=== PATIENT | male | born 1950 | race Caucasian/White ===

== ENCOUNTER 2025-02-17 13:53 | Outpatient (CLI) | payer MEDICARE, SELFPAY ==
--- NOTE | 2025-02-17 13:56 | XR_ITS ---
FINAL REPORT CLINICAL HISTORY: right shoulder pain feels like an aching pain COMPARISON: None FINDINGS: RIGHT SHOULDER Three views demonstrate no acute fracture or dislocation. There is mild to moderate hypertrophic changes of the acromioclavicular joint. The glenohumeral joint is intact. Sclerotic focus in the proximal humeral metaphysis measures 1.8 cm and is consistent with enostosis. IMPRESSION: Degenerative/chronic changes without acute process. Reviewed, Interpreted and Dictated by Mateus Pinto MD Transcribed by Senait Johnston Authenticated and [facility]
--- NOTE | 2025-02-17 13:56 | XR_ITS ---
FINAL REPORT CLINICAL HISTORY: evaluate right foot pain prior fracture as a young kid , pt stated pain in the same area that it was fractured , on the lateral side COMPARISON: None FINDINGS: RIGHT FOOT 3 views of the right foot were obtained. There is no acute fracture or dislocation. Moderate vascular calcifications are noted. There is moderate joint space narrowing at the first interphalangeal joint. An os trigonum measures 10 mm. IMPRESSION: Degenerative/chronic change without acute bony abnormality. Reviewed, Interpreted and Dictated by Mateus Pinto MD Transcribed by Senait Johnston Authenticated and [facility]
--- OUTSIDE RECORDS SUMMARY | 2025-02-17 13:56 | XMS_ITS | Clinical Summary ---
Author Organization [facility] Address [address] [place] [address] Care Team Providers Care Television Newscast Director Name Role Phone Guillermo Escobar Primary Care Provider [phone] Allergies No known active allergies Medications omeprazole (priLOSEC) 20 MG capsule Take 20 mg by mouth Daily. Active escitalopram (LEXAPRO) 20 MG tablet Take 20 mg by mouth Daily. Active topiramate (TOPAMAX) 25 MG capsule (sprinkle) Take 25 mg by mouth Daily. Active lisinopril (PRINIVIL,ZESTR IL) 20 MG tablet Take 20 mg by mouth Daily. Active nitroglycerin (NITROSTAT) 0.[address] 1 tablet under the tongue Every 5 (Five) Minutes As Needed for Chest Pain. Take no more than 3 doses in 15 minutes. 100 tablet 11/02/2021 Active valACYclovir (VALTREX) 500 MG tablet Take 500 mg by mouth Daily. 10/19/2021 Active metoprolol tartrate (LOPRESSOR) 25 MG tablet Take 1 tablet by mouth 2 (Two) Times a Day. 60 tablet 11 11/08/2021 Active rosuvastatin (CRESTOR) 20 MG tabletIndicatio ns:Hyperlipidem ia LDL goal <70 Take 1 tablet by mouth Daily. 90 tablet 11/09/2021 Active aspirin 81 MG EC tabletIndicatio ns:Coronary artery disease involving [place] coronary artery of [place] heart with angina pectoris Take 1 tablet by mouth Daily. 90 tablet 3 11/10/2021 Active empagliflozin (Jardiance) 10 MG tablet tabletIndicatio ns:Type 2 diabetes mellitus without complication, without long-term current use of insulin Take 1 tablet by mouth Daily. 90 tablet 11/09/2021 Active Active Problems Problem Noted Date Diagnosed Date Type 2 diabetes mellitus, wi thout long-term current use of insulin 11/09/2021 Ventricular tachycardia 11/08/2021 Overview (11/09/2021): Exercise nuclear stress (11/08/2021): Exercised for 3:2 minutes before developing symptomatic nonsustained ventricular tachycardia. Normal perfusion images. LVEF >70% Cardiac catheterization (11/09/2021): Mild CAD.. Normal LV filling pressure Echo (11/09/2021): LVEF 65%. No significant valve abnormality Coronary artery disease invo lving [place] coronary artery of [place] heart with angina pectoris 11/08/2021 Overview (11/09/2021): Exercise nuclear stress (11/08/2021): Exercised for 3:2 minutes before developing symptomatic ventricular tachycardia. Normal perfusion images. LVEF >70% coronary artery calcification noted on CT attenuation correction images. Cardiac catheterization (11/09/2021): Mild CAD and left dominant system. Normal LV filling pressure Hyperlipidemia LDL goal <70 11/08/2021 Overview (11/08/2021): High intensity statin therapy indicated given the presence of CAD Family History Medical History Relation Name Comments No Known Problems Brother Cancer Father bile duct No Known Problems Maternal Grandfather No Known Problems Maternal Grandmother No Known Problems Mother Stroke Paternal Grandfather No Known Problems Paternal Grandmother Heart disease Paternal Uncle No Known Problems Sister Relation Name Status Comments Brother Alive Father Maternal Grandfather Maternal Grandmother Mother Paternal Grandfather Paternal Grandmother Paternal Uncle Alive Sister Alive Social History Tobacco Use Types Packs/Day Years Used Date Smoking Tobacco: Former Smokeless Tobacco: Former Alcohol Use Standard Drinks/Week Comments Not Currently 0 (1 standard drink = 0.6 oz pur e alcohol) none for 2 years AUDIT-C Answer Date Recorded Q1: How often do you have a drink containing alcohol? Never 11/08/2021 Q2: How many drinks containi ng alcohol do you have on a typical day when you are drinking? Patient does not drink Q3: How often do you have si x or more drinks on one occasion? Never 11/08/2021 Abuse Screen Answer Date Recorded Unsafe at Home or Work/School Not on file Feels Threatened by Someone? Not on file 01/2023 Does Anyone Keep You from Co ntacting Others or Doint Things Outside the Home? Not on file 02/25/2023 Physical Sign of Abuse Present Not on file 1 Housing Stability Answer Date Recorded Current Living Arrangements Not on file 01/2023 Potentially Unsafe Housing Conditions Not on ann e 02/25/2023 Family and Community Support Answer Rajat e Recorded Help with Day-to-Day Activities Not on file 02/25/2023 Lonely or Isolated Not on file 02/25/2023 Employment Answer Date Recorded Do you want help finding or keeping work or a falguni b? Not on file 02/25/2023 Disabilities Answer Date Recorded Concentrating, Remembering, or Making Decisions Difficulty Not on file 02/25/2023 Doing Errands Independently Difficulty Not on fi le 02/25/2023 Education Answer Date Recorded Help with school or training? Not on file Preferred Language Not on file 02/25/2023 Sex and Gender Information Value Date Recorded Sex Assigned at Not on file Legal Sex Male 10:42 AM EDT Gender Identity Not on file Sexual Orientation Not on file Last Filed Vital Signs Vital Sign Reading Time Taken Comments Blood Pressure 99/59 11/09/2021 11:29 AM EDT Pulse 55 11/09/2021 2:00 PM EDT Temperature 36.7 C (98 F) 11/09/2021 9:20 AM EDT Respiratory Rate 16 11/09/2021 11:29 AM EDT Oxygen Saturation 92% 11/09/2021 2:00 PM EDT Inhaled Oxygen Concentration - - Weight 98 kg (216 lb) 11/09/2021 1:11 PM EDT Height 182.9 cm (6') 11/09/2021 1:11 PM EDT Body Mass Index 29.29 11/09/2021 1:11 PM EDT Plan of Treatment Health Maintenance Due Date Last Done Comments COLOGUARD 1995 COLON CANCER SCREENING 5 RYANN Lira SIGMOIDOSCOPY 1995 COLONOSCOPY 1995 COL[address]AL CANCER SCREENING 1995 CT COLONOGRAPHY 1995 FECAL OCCULT BLOOD TEST 1995 FIT Testing (1 year) 1995 ZOSTER VACCINE (1 of 2) 2000 AAA SCREEN ONCE 2015 ANNUAL PHYSICAL 11/06/2021 HEPATITIS C SCREENING 11/06/2021 LIPID PANEL 11/09/2022 11/09/2021 INFLUENZA VACCINE 12/18/2024 COVID-19 Vaccine (2 - season) 2025 Pneumococcal Vaccine 50+ (3 of 3 - PCV20 or PCV21) 09/21/2025 09/21/2020, 05/15/2011 TDAP/TD VACCINES (2 - Td or Tdap) 06/04/2026 017 HEMOGLOBIN A1C Discontinued 11/08/2021 Procedures Procedure Name Priority Date/Time Associated Diagnosis Comments LIPID PANEL Routine 11/09/2021 4:03 AM EDT HEMOGLOBIN A1C Routine 11/08/2021 7:07 PM EDT from Last 3 Months or Most Recently Relevant to Health Maintenance Results * (ABNORMAL) Lipid Panel (11/09/2021 4:03 AM EDT) Total Cholesterol 187 0 - 200 mg/dL 11/09/2021 5:57 AM EDT [facility] Triglycerides 186(H) 0 - 150 mg/dL 11/09/2021 5:57 AM EDT [facility] HDL Cholesterol 33(L) 40 - 60 mg/dL 11/09/2021 5:57 AM EDT [facility] LDL Cholesterol 121(H) 0 - 100 mg/dL 11/09/2021 5:57 AM EDT [facility] VLDL Cholesterol 33 5 - 40 mg/dL 11/09/2021 5:57 AM EDT [facility] LDL/HDL Ratio 3.54 11/09/2021 5:57 AM EDT [facility] Blood Venipuncture / Unknown 11/09/2021 4:03 AM EDT 11/09/2021 5:28 AM EDT Narrative [facility] - 11/09/2021 5:57 AM EDT Cholesterol Reference Ranges (U.S. Department of Health and Human Services ATP III Classifications) Desirable <200 mg/dL Borderline High 200-239 mg/dL High Risk >240 mg/dL Triglyceride Reference Ranges (U.S. Department of Health and Human Services ATP III Classifications) Normal <150 mg/dL Borderline High 150-199 mg/dL High 200-499 mg/dL Very High >500 mg/dL HDL Reference Ranges (U.S. Department of Health and Human Services ATP III Classifications) Low <40 mg/dl (major risk factor for CHD) High >60 mg/dl ('negative' risk factor for CHD) LDL Reference Ranges (U.S. Department of Health and Human Services ATP III Classifications) Optimal <100 mg/dL Near Optimal 100-129 mg/dL Borderline High 130-159 mg/dL High 160-189 mg/dL Very High >189 mg/dL Pierce Arriaga MD LAB BLOOD ORDERABLES Fi nal Result [facility]
[address] [place] [address], * (ABNORMAL) Hemoglobin A1c (11/08/2021 7:07 PM EDT) [facility] Signature Hemoglobin A1C 7.10(H) 4.80 - 5.60 % 11/08/2021 8:08 PM EDT [facility] Blood Venipuncture / Unknown 11/08/2021 7:07 PM EDT 11/08/2021 7:38 PM EDT Narrative [facility] - 11/08/2021 8:08 PM EDT Hemoglobin A1C Ranges: Increased Risk for Diabetes 5.7% to 6.4% Diabetes >= 6.5% Diabetic Goal < 7.0% Pierce Arriaga MD LAB BLOOD ORDERABLES Fi nal Result [facility]
[address] [place] [address], from Last 3 Months or Most Recently Relevant to Health Maintenance Insurance MEDICARE A & [facility] C[facility] OPTIONS Advance Directives * CPR (Attempt to Resuscitate) (Latest Code Status on File) Date Activated Date Inactivated Comments 11/09/2021 12:14 PM 11/09/2021 6:36 PM Question Answer Comments Code Status (Patient has no pulse and is not breathing): CPR (Attempt to Resuscitate) Medical Interventions (Patie nt has pulse or is breathing): Full Support * CPR (Attempt to Resuscitate) Date Activated Date Inactivated Comments 11/08/2021 7:42 PM 11/09/2021 12:14 PM Question Answer Comments Code Status (Patient has no pulse and is not breathing): CPR (Attempt to Resuscitate) Medical Interventions (Patie nt has pulse or is breathing): Full Support Level Of Support Discussed With: Patient Care Teams Television Newscast Director Relationship Specialty Start Date End Date Guillermo Escobar DO [address] [place] [address] PCP - General Family Medicine 10/15/18
== END 2025-02-17 23:59 | disposition home or self-care (01) ==
LOC: RAD 13:54
PROVIDERS: PCP Family Medicine; Visit Provider Family Medicine
DX: M19.011 Primary osteoarthritis, right shoulder (principal); M19.071 Primary osteoarthritis, right ankle and foot
CPT/HCPCS: 73030; 73630

== ENCOUNTER 2025-04-20 15:23 | Outpatient (CLI) | payer MEDICARE, SELFPAY ==
--- NOTE | 2025-04-20 15:26 | XR_ITS ---
FINAL REPORT CLINICAL HISTORY: right 5th met fracture evaluation COMPARISON: 02/17/2025 FINDINGS: RIGHT FOOT 3 views of the right foot were obtained. There is no acute fracture or dislocation. Specifically, there is no acute fracture of the fifth metatarsal. There is stable degenerative joint disease. Visualized joint spaces are normally aligned. Soft tissues are unremarkable. IMPRESSION: No acute bony abnormality. Reviewed, Interpreted and Dictated by Bernice Montalvo MD Transcribed by Thelma Shell Authenticated and [facility]
--- OUTSIDE RECORDS SUMMARY | 2025-04-20 15:27 | XMS_ITS | Encounter Summary ---
Author Organization [facility] ([place], [place], [place], [place], [place]) Address [address] [place] [address] Care Team Providers Care Solderer Barrel Ribs Name Role Phone Guillermo Escobar DO Primary Care Provider [phone] Jorge Bray MD Primary Care Provider [phone] Citlali Bond MD, Tino Kwok Unavailable + [phone] Harrison Santana Unavailable [phone] Encounter Details Date Type Department Care Team (Late st Contact Info) Description 09/19/2022 Telephone [facility] Primary Care - [place] [address] [place] [address] Guillermo Escobar, [address] [facility] [address] [place] [id number] Social History Tobacco Use Types Packs/Day Years Used Date Smoking Tobacco: Former Smokeless Tobacco: Never Overall Financial Resource Strain (CARDIA) Answe r Date Recorded How hard is it for you to pa y for the very basics like food, housing, medical care, and heating? Not hard at all 07/17/2022 Exercise Vital Sign Answer Date Recorde d On average, how many days pe r week do you engage in moderate to strenuous exercise (like a brisk walk)? 0 days 07/17/2022 On average, how many minutes do you engage in exercise at this level? 0 min 07/17/2022 Hunger Vital Sign Answer Date Recorded Within the past 12 months, y ou worried that your food would run out before you got the money to buy more. Never true 07/17/19 23 Within the past 12 months, t he food you bought just didn't last and you didn't have money to get more. Never true 07/17/2022 PRAPARE - Transportation Answer Date Re corded In the past 12 months, has l ack of transportation kept you from medical appointments or from getting medications? No 06/21 In the past 12 months, has l ack of transportation kept you from meetings, work, or from getting things needed for daily living? No 07/17/2022 Sex and Gender Information Value Date Recorded Sex Assigned at Not on file Legal Sex Male 5:45 PM CDT Gender Identity Not on file Sexual Orientation Not on file documented as of this encounter Miscellaneous Notes * Telephone Encounter - Guillermo Escobar DO - 09/20/2022 7:58 AM EDT The area in question is in the right axilla not in the breast. There is no dedicated axillary ultrasound available that I could find to order. Any suggestions? Thank you documented in this encounter Plan of Treatment Not on file documented as of this encounter Visit Diagnoses Not on filedocumented in this encounter Care Teams Solderer Barrel Ribs Relationship Specialty Start Date End Date Guillermo Escobar DO PCP - General Family Medicine 03/26/22 06/03/23 Jorge Bray MD [address] [facility] [address] [place], [place] [id number] PCP - General Family Medicine 06/04/23 01/31/25 Tino Godwin Jr., MD [address] [facility] [address] [place] [address] Urology 10/27/24 Harrison Santana [address] [place] [address] 10/27/24 documented as of this encounter
--- OUTSIDE RECORDS SUMMARY | 2025-04-20 15:27 | XMS_ITS | Encounter Summary ---
Author Organization [employer] ([place], [place], [place], [place], [place]) Address [address] [place] [address] Care Team Providers Care Interactive Media Project Manager Name Role Phone Guillermo Escobar DO Primary Care Provider [phone] Jorge Bray MD Primary Care Provider [phone] Citlali Bond MD, Tino Kwok Unavailable + [phone] Harrison Santana Unavailable [phone] Encounter Details Date Type Department Care Team (Late st Contact Info) Description 09/27/2022 Telephone [facility] Primary Care - [place] [address] [place] [address] Guillermo Escobar, [address] [facility] [address] [place] [id number] Social History Tobacco Use Types Packs/Day Years [...] Telephone Encounter - Guillermo Escobar DO - 09/27/2022 12:56 PM EDT Done. Thanks again for your persistence in this matter. documented in this encounter Plan of Treatment Not on file documented as of this encounter Visit Diagnoses Not on filedocumented in this encounter Care Teams Interactive Media Project Manager Relationship Specialty Start Date End Date Guillermo Escobar DO PCP - General Family Medicine 03/26/22 06/03/23 Jorge Bray MD [address] [facility] [address] [place], [place] [id number] PCP - General Family Medicine 06/04/23 01/31/25 [place] [address] [place] [address] [address] [place] [address] Urology 10/27/24 Harrison Santana [address] [facility] [address] [place] [address] 10/27/24 documented as of this encounter
--- OUTSIDE RECORDS SUMMARY | 2025-04-20 15:27 | XMS_ITS | Clinical Summary ---
Author Organization [employer] ([place], [place], [place], [place], [place]) Address [address] [place] [address] Care Team Providers Care Strategic Insights Lead Name Role Phone Citlali Bond MD, Tino Kwok Unavailable [phone] Harrison Santana Unavailable [phone] Allergies No known active allergies Medications nitroglycerin (NITROSTAT) 0.[address] 1 tablet (0.4 mg total) under the tongue. 11/03/19 22 Active cholecalciferol (VITAMIN D3) 10 mcg (400 unit) Tab tablet Take 2.5 tablets (1,000 Units total) by mouth daily. Active predniSONE (DELTASONE) 20 MG tabletIndications:Po el[place] alex dermatitis 2 tabs daily for 7 days, then 1 tab daily for 7 days. 21 tablet 10/28/19 25 Active valACYclovir (VALTREX) 500 MG tabletIndications:Se xually transmitted disease Take 1 tablet by mouth once daily 90 tablet 10/29/19 25 Active simvastatin (ZOCOR) 20 MG tabletIndications:Ty pe 2 diabetes mellitus without complication, without long-term current use of insulin (HCC) TAKE 1 TABLET BY MOUTH ONCE DAILY . APPOINTMENT REQUIRED FOR FUTURE REFILLS 90 tablet 1 11/14/19 25 Active omeprazole (PriLOSEC) 20 MG capsuleIndications:H /O gastroesophageal reflux (GERD) TAKE 1 CAPSULE BY MOUTH ONCE DAILY . APPOINTMENT REQUIRED FOR FUTURE REFILLS 90 capsule 1 11/14/19 25 Active lisinopriL (ZESTRIL) 20 MG tabletIndications:Pr imary hypertension TAKE 1 TABLET BY MOUTH ONCE DAILY . APPOINTMENT REQUIRED FOR FUTURE REFILLS 90 tablet 1 11/14/19 25 Active escitalopram (LEXAPRO) 20 MG tablet Take 1 tablet by mouth once daily 90 tablet 01/21/20 25 Active clopidogreL (PLAVIX) 75 mg tabletIndications:Hi story of transient ischemic attack Take 1 tablet by mouth once daily 90 tablet 01/23/20 25 Active metFORMIN (GLUCOPHAGE) 500 MG tabletIndications:Ty pe 2 diabetes mellitus without complication, without long-term current use of insulin (HCC) TAKE 1 TABLET BY MOUTH WITH EVENING MEAL 90 tablet 01/23/20 25 Active Hospital, Clinic, or Other Facility Administered Medication Ordered Dose Route Frequency Start Date End Date Status cefTRIAXone (ROCEPHIN) injection 1 gIndications:Sinus congestion 1 g IM Every 24 hours 04/30/2022 Active Active Problems Patient Care Coordination No te Formatting of this note migh t be different from the original. Anxiety with depression: escitalopram 20 Hyperlipidemia: simvastatin 20; LDL 124 August 2023 HTN: lisinopril 20; nl GFR August 2023 CAD: plavix 75 DM: metformin 500; a1c 6.18 Sep 2022 GERD: omeprazole 20 Abnormal PSA: biopsy negative; Geovanny is provider Problem Noted Date Diagnosed Date High prostate specific antigen (PSA) 10/15/2022 Anxiety 09/11/2022 Type 2 diabetes mellitus wit hout complication, without long-term current use of insulin 08/14/2022 Mixed hyperlipidemia 08/14/2022 Primary hypertension 08/14/2022 History of arterial ischemic stroke 08/14/2022 Kidney stones 07/16/2022 Memory impairment 07/16/2022 Sexually transmitted disease 07/16/2022 Coronary artery disease invo lving [place] coronary artery of [place] heart with angina pectoris 11/08/2021 Ventricular tachycardia 11/08/2021 Raised prostate specific antigen 10/19/2020 Depression 10/18/2020 Vitamin D deficiency 10/18/2020 Insomnia 06/11/2019 Patent foramen ovale 06/11/2019 Resolved Problems Problem Noted Date Diagnosed Date Resolved Date Primary erectile dysfunction 10/15/2022 09/02/2023 09/04/2023 Benign prostatic hyperplasia without urinary obstruction 10/15/2022 09/02/2023 09/04/2023 Other depression 08/14/2022 09/04/2023 Arthritis 07/16/2022 09/04/2023 Low platelet count 10/18/2020 Spondylosis of cervical spine 10/18/2020 09/04/2023 Chronic obstructive pulmonary disease 06/11/2019 09/04/2023 Other detention (current) drug therapy 06/11/2019 09/04/2023 Encounters Date Type Department Care Team Description 01/29/2025 Telephone [facility] [address] [address] Jorge Bray MD FORMS REQUEST 01/20/2025 Telephone [facility] [address] [address] Jorge Bray MD medical records from Last 3 Months Immunizations Immunization Administration Dates Next Due Covid-19 Vaccine MRNA (PF) 18yr+ (Moderna)([id number] [id number]) 04/04/2021 Pneumococcal Conjugate (Prevnar) 13-Valent 09/21 Pneumococcal Polysaccharide (Pneumovax) 05/20/19 17,05/15/2011 Tdap 06/04/2016 Social History Tobacco Use Types Packs/Day Years Used Date Smoking Tobacco: Former Cigarettes 0.8 11.7 S tarted: 08/16/2013 Smokeless Tobacco: Former Chew Tobacco Cessation:Counseling Given: Not Answered Alcohol Use Standard Drinks/Week Comments Not Currently 0 (1 standard drink = 0.6 oz pur e alcohol) Social Connection and Isolation Panel Answer Date Recorded In a typical week, how many times do you talk on the phone with family, friends, or neighbors? Three times a week 10/27/2024 How often do you get togethe r with friends or relatives? Once a week 10/27/2024 How often do you attend chur [place] or latter day services? Never 10/27/2024 Do you belong to any clubs o r organizations such as yarsanism groups, unions, fraternal or athletic groups, or school groups? No 10/27/2024 How often do you attend meet ings of the clubs or organizations you belong to? Never 10/27/2024 Are you , , di vorced, , never , or living with a partner? 10/27/2024 Overall Financial Resource Strain (CARDIA) Answe r Date Recorded How hard is it for you to pa y for the very basics like food, housing, medical care, and heating? Not hard at all 10/27/2024 Exercise Vital Sign Answer Date Recorde d On average, how many days pe r week do you engage in moderate to strenuous exercise (like a brisk walk)? 7 days 10/27/2024 On average, how many minutes do you engage in exercise at this level? 20 min 10/27/2024 Hunger Vital Sign Answer Date Recorded Within the past 12 months, y ou worried that your food would run out before you got the money to buy more. Never true 10/28/19 25 Within the past 12 months, t he food you bought just didn't last and you didn't have money to get more. Never true 10/27/2024 PRAPARE - Transportation Answer Date Re corded In the past 12 months, has l ack of transportation kept you from medical appointments or from getting medications? No 10/18 In the past 12 months, has l ack of transportation kept you from meetings, work, or from getting things needed for daily living? No 10/27/2024 Housing Stability Vital Sign Answer Rajat e Recorded In the last 12 months, was t here a time when you were not able to pay the mortgage or rent on time? No 10/27/2024 In the past 12 months, how m any times have you moved where you were living? 1 10/27/2024 At any time in the past 12 m [facility], were you homeless or living in a prison (including now)? No 10/27/2024 CHI Intimate Partner Violence Answer Da te Recorded Within the last year, have y ou been afraid of your partner or ex-partner? No 10/27/2024 Within the last year, have y ou been humiliated or emotionally abused in other ways by your partner or ex-partner? No Within the last year, have y ou been kicked, hit, slapped, or otherwise physically hurt by your partner or ex-partner? No 10/27/2024 Within the last year, have y ou been raped or forced to have any kind of sexual activity by your partner or ex-partner? No 10/27/2024 Family and Community Support Answer Rajat e Recorded Help with Day to Day Activities Not on file 06/03/2023 Feeling Lonely or Isolated Not on file 06/03 Educational Attainment Answer Date Omar rded Speak language other than Djiboutian at home Not on file 06/03/2023 Want help with school or training Not on file 06/03/2023 Substance Use Answer Date Recorded Used prescription meds for non-medical reasons N ot on file 06/03/2023 Used illegal drugs past 12 months Not on file 06/03/2023 Sex and Gender Information Value Date Recorded Sex Assigned at Not on file Legal Sex Male 5:45 PM CDT Gender Identity Not on file Sexual Orientation Not on file Last Filed Vital Signs Vital Sign Reading Time Taken Comments Blood Pressure 136/84 10/27/2024 11:03 AM EDT Pulse 79 10/27/2024 11:03 AM EDT Temperature 36.6 C (97.9 F) 10/27/2024 11:03 AM EDT Respiratory Rate - - Oxygen Saturation 97% 10/27/2024 11:03 AM EDT Inhaled Oxygen Concentration - - Weight 95.3 kg (210 lb) 10/27/2024 11:03 AM EDT Height 182.9 cm (6') 10/27/2024 11:03 AM EDT Body Mass Index 28.48 10/27/2024 11:03 AM EDT Plan of Treatment Health Maintenance Due Date Last Done Comments CT Colonography 1950 Colonoscopy 1950 Diabetic Kidney Health Evaluation (KED) 1950 FOBT/FIT 1950 Fit-DNA (Cologuard) 1950 Sigmoidoscopy 1950 Hemoglobin A1C 03/11/2024 09/10/2023, 09/18/2022, 04/30/2022 Diabetic Eye Exam 04/27/2025 04/27/2024, 01/02/2022 Colorectal Cancer Screening 10/27/2025 Postponed from 1950 (Patient Refused) Tobacco Cessation Counseling and Screening (12+) 10/27/2025 10/27/2024 Statin - ASCVD Risk Prevention 11/13/2025 11/13/2024 Medicare Subsequent AWV (yea r 3+) [id number] 11/26/2025 10/27/2024, 07/17/2022 DTAP/TDAP/TD VACCINES (2 - T d or Tdap) 06/04/2026 06/04/2016 Pneumococcal 50+ years Completed , 05/20/2016, 05/15/2011 COVID-19 VACCINE Discontinued 04/04/2021, 06/29/2020, 06/02/2020 Falls Risk Screening Completed 10/27/2024, 07/17/2022, 04/30/2022 Abdominal Aortic Aneurysm (AAA) Screen Discontinued Hepatitis C Screening Discontinued Influenza Vaccine Discontinued Respiratory Syncytial Virus (RSV) Adult or Discontinued Shingles Vaccine (Zoster) Discontinued Procedures Procedure Name Priority Date/Time Associated Diagnosis Comments DIABETES EYE EXAM Routine 04/27/2024 3:57 PM EST POCT GLYCATED HEMOGLOBIN, TOTAL Routine 09/10/2023 1:08 PM EDT Type 2 diabetes mellitus without complication, without long-term current use of insulin (HCC) from Last 3 Months or Most Recently Relevant to Health Maintenance Results * DIABETES EYE EXAM (04/27/2024 3:57 PM EST) [facility] Provider HEALTH MAINTENANCE Final Result * POCT glycated hemoglobin, total (A1C) (09/10/2023 1:08 PM EDT) Hemoglobin A1C 6.6 % 09/10/2023 1:08 PM EDT Jorge Bray MD POINT OF CARE TEST ORDERABLES Final Result from Last 3 Months or Most Recently Relevant to Health Maintenance Insurance MEDICARE PART A B [facility] SUPP Care Teams Strategic Insights Lead Relationship Specialty Start [place] [address] [place] [address] [address] [place] [address] Urology 10/27/24 Harrison Santana 601 [facility] [address] [place] [address] 10/27/24
--- OUTSIDE RECORDS SUMMARY | 2025-04-20 15:27 | XMS_ITS | Referral Summary ---
Author Organization [employer] ([place], [place], [place], [place], [place]) Address [address] [place] [address] Care Team Providers Care Pad Assembler Name Role Phone Citlali Bond MD, Tino Kwok Unavailable [phone] Harrison Santana Unavailable [phone] Encounters Date Type Department Care Team Description 01/29/[address] [address] Jorge Bray MD FORMS REQUEST 01/20/[address] [place] [phone] Jorge Bray MD medical records from Last 3 Months Allergies No known active allergies Medications nitroglycerin [...] MOUTH WITH EVENING MEAL 90 tablet 01/23/20 Active Hospital, Clinic, or Other Facility Administered [...] disease 07/16/2022 Coronary artery disease invo lving [place] coronary artery of [place] heart with angina pectoris 11/08/2021 Ventricular tachycardia [...] Chronic obstructive pulmonary disease 06/11/2019 09/04/2023 Other senior care (current) drug therapy 06/11/2019 09/04/2023 Immunizations Immunization Administration Dates Next Due Covid-19 [...] 10/27/2024 How often do you attend chur or baptist services? Never 10/27/2024 Do you belong to any clubs o r organizations such as episcopalian groups, unions, fraternal or athletic groups, or [...] any time in the past 12 m [facility], were you homeless or living in a mcc (including now)? No 10/27/2024 CHI Intimate Partner [...] Date Omar rded Speak language other than Cameroonian at home Not on file 06/03/2023 Want [...] 10/27/2024 11:03 AM EDT Plan of Treatment Not on file Procedures Procedure Name Priority Date/Time Associated Diagnosis Comments DIABETES EYE EXAM Routine 04/27/2024 3:57 PM EST POCT GLYCATED HEMOGLOBIN, TOTAL Routine 09/10/2023 1:08 PM EDT Type 2 diabetes mellitus without complication, without long-term current use of insulin (HCC) from Last 3 Months or Most Recently Relevant to Health Maintenance Results * DIABETES EYE EXAM (04/27/2024 3:57 PM EST) Historical Provider HEALTH MAINTENANCE Final Result * POCT glycated hemoglobin, total (A1C) (09/10/2023 1:08 PM EDT) Hemoglobin A1C 6.6 % 09/10/2023 1:08 PM EDT us Jorge Bray MD POINT OF CARE TEST ORDERABLES Final Result from Last 3 Months or Most Recently Relevant to Health [place] [address] MEDICARE PART A B [facility] SUPP Care Teams Pad Assembler Relationship Specialty Start [place] [address] [place], [place] [id number] [place] [address] Urology 10/27/24 Harrison Santana [address] [place] [address] 10/27/24
--- OUTSIDE RECORDS SUMMARY | 2025-04-20 15:27 | XMS_ITS | Encounter Summary ---
Author Organization [employer] ([place], [place], [place], [place], [place]) Address [address] [place] [address] Care Team Providers Care Fire Fighting Equipment Specialist Name Role Phone Jorge Bray MD Primary Care Provider [phone] Citlali Bond MD, Tino Kwok Unavailable [phone] Harrison Santana Unavailable [phone] Reason for Visit * Reason Onset Date Comments FORMS REQUEST 01/29/2025 Encounter Details Date Type Department Care Team (Late st Contact Info) Description 01/29/2025 Telephone [facility] Primary Care [facility] [address] [address] Jorge Bray MD [address] [place] [address] FORMS REQUEST Social History Tobacco Use Types Packs/Day Years Used Date Smoking Tobacco: Former Cigarettes 0.8 11.7 S tarted: 08/16/2013 Smokeless Tobacco: Former Chew Alcohol Use Standard Drinks/Week Comments Not Currently [...] 10/27/2024 How often do you attend chur ch or muslim services? Never 10/27/2024 Do you belong to any clubs o r organizations such as religious groups, unions, fraternal or athletic groups, or [...] any time in the past 12 m [facility], were you homeless or living in a jail (including now)? No 10/27/2024 CHI Intimate Partner [...] Date Omar rded Speak language other than Estonian at home Not on file 06/03/2023 Want [...] encounter Miscellaneous Notes * Telephone Encounter - Zane Burris - 02/01/2025 10:30 AM EDT Reached out to [facility] Via email. Waiting for update. * Telephone Encounter - Ish Boss - 01/29/2025 1:10 PM EDT Caller's Name: Dara Relation to Patient: Spouse Reason for Update: Patient's is calling to let office know that [facility] only has records for 24-25 but that the last 40+ years are missing and [facility] doesn't have anything from when patient saw Dr. Escobar. She would like a call back. Message Update: Appointment Offered Preferred Method of Contact and Details: * Telephone Encounter - Ish Boss - 01/29/2025 11:42 AM EDT Caller's Name: Dara Pagan Relation to Patient: Spouse Reason for Update: I called and was able to get the pt in touch with [facility] and they are assisting her with this request as they said they have emailed and faxed the records. Message Update: Message routed to Clinic Preferred Method of Contact and Details: * Telephone Encounter - Ish Boss - 01/29/2025 11:28 AM EDT FROM: Leila Mckeon TO: [facility] 25 L[employer] DEALER STAFF [[id number]] SUBJECT: Forms Request PROVIDER: CUATE BRAY [[id number]] DEPARTMENT: [facility] [[id number]] ENCOUNTER REASON FOR CALL: FORMS REQUEST ENCOUNTER TYPE: Telephone REQUEST TYPE: ALL Other Forms TYPE OF FORM REQUESTING: Other IF OTHER FORM REQUEST, PLEASE SPECIFY: Medical Records PATIENT REQUESTING TO: Other IF OTHER REQUEST, PLEASE SPECIFY: They would like to pick them up if they do not have to pay for them. They have been trying since November to get these medical records from [facility] and they have called them and Dr. Art Thomas's office where they go now has called also. They are wanting to know if there is anything we can do to help. They are very frustrated that they can not get these records. HAS PROBLEM BEEN DISCUSSED WITH PROVIDER? Yes APPOINTMENT OFFERED? Yes but patient declined appointment IF PATIENT DECLINED APPOINTMENT, EXPLAIN: He is being seen by a different provider. CHANNEL USED TO SEND FORM: Other IF OTHER CHANNEL, PLEASE SPECIFY: Called the connection center DATE FORM WAS DROPPED OFF/SENT: 2025-01-29 FORM GIVEN/SENT TO: Leila NGUYEN FORM NEEDED BACK: 2025-02-05 LAST VISIT: 2024-10-27 NEXT VISIT DATE IS NOT APPLICABLE: Yes MESSAGE PRIORITY: Routine ADDITIONAL INFORMATION: Pt did come in the office on 01/20 and speak with Aicha about this as well, I did call [facility] for them again as well. CALLER'S NAME: Dara Pagan RELATION TO PATIENT: Spouse [2] PREFERRED LANGUAGE: Estonian BEST CALL BACK PHONE NUMBER: Other: ([phone]) WHAT IS THE BEST WAY FOR THE OFFICE TO CONTACT YOU?: OK to leave message on [employer] documented in this encounter Plan of Treatment Not on file documented as of this encounter Visit Diagnoses Not on filedocumented in this encounter Care Teams Fire Fighting Equipment Specialist Relationship Specialty Start Date End Date Jorge Bray MD 1000 [facility] 100 [place], [place] [id number] PCP - General Family Medicine 06/04/23 01/31/25 [place] [address] [place] [address] [address] [place] [address] Urology 10/27/24 Harrison Santana [address] [facility] [address] [place], [place] [id number] 10/27/24 documented as of this encounter
--- OUTSIDE RECORDS SUMMARY | 2025-04-20 15:27 | XMS_ITS | Clinical Summary ---
Author Organization [facility] Address [address] [place] [address] Care Team Providers Care Unleavened Dough Mixer Name Role Phone Guillermo Escobar Primary Care Provider [phone] Allergies No known active allergies Medications omeprazole [...] MG EC tabletIndicatio ns:Coronary artery disease involving [place] coronary artery of [place] heart with angina pectoris Take 1 tablet [...] valve abnormality Coronary artery disease invo lving [place] coronary artery of [place] heart with angina pectoris 11/08/2021 Overview (11/09/2021): [...] - 200 mg/dL 11/09/2021 5:57 AM EDT [facility] Triglycerides 186(H) 0 - 150 mg/dL 11/09/2021 5:57 AM EDT [facility] HDL Cholesterol 33(L) 40 - 60 mg/dL 11/09/2021 5:57 AM EDT [facility] LDL Cholesterol 121(H) 0 - 100 mg/dL 11/09/2021 5:57 AM EDT [facility] VLDL Cholesterol 33 5 - 40 mg/dL 11/09/2021 5:57 AM EDT [facility] LDL/HDL Ratio 3.54 11/09/2021 5:57 AM EDT [facility] Blood Venipuncture / Unknown 11/09/2021 4:03 AM EDT 11/09/2021 5:28 AM EDT Narrative [facility] - 11/09/2021 5:57 AM EDT Cholesterol [...] MD LAB BLOOD ORDERABLES Fi nal Result [facility]
[address] [place] [address], * (ABNORMAL) Hemoglobin A1c (11/08/2021 7:07 PM EDT) [facility] Signature Hemoglobin A1C 7.10(H) 4.80 - 5.60 % 11/08/2021 8:08 PM EDT [facility] Blood Venipuncture / Unknown 11/08/2021 7:07 PM EDT 11/08/2021 7:38 PM EDT Narrative [facility] - 11/08/2021 8:08 PM EDT Hemoglobin A1C Ranges: Increased Risk for Diabetes 5.7% to 6.4% Diabetes >= 6.5% Diabetic Goal < 7.0% Pierce Arriaga MD LAB BLOOD ORDERABLES Fi nal Result [facility]
[address] [place] [address], from Last 3 Months or Most Recently Relevant to Health Maintenance Insurance MEDICARE A & B [facility] CARE OPTIONS Advance Directives * CPR [...] Of Support Discussed With: Patient Care Teams Unleavened Dough Mixer Relationship Specialty Start Date End Date Guillermo Escobar DO [address] [place] [address] PCP - General Family Medicine 10/15/18
--- OUTSIDE RECORDS SUMMARY | 2025-04-20 15:27 | XMS_ITS | Encounter Summary ---
Author Organization [employer] ([place], [place], [place], [place], [place]) Address [address] [place] [address] Care Team Providers Care Gi Technician Name Role Phone Jorge Bray MD Primary Care Provider [phone] Citalli Bond MD, Tino Kwok Unavailable [phone] Harrison Santana Unavailable [phone] Reason for Visit * Reason Onset Date Comments medical records 01/20/2025 Encounter Details Date Type Department Care Team (Late st Contact Info) Description 01/20/2025 Telephone [facility] Primary Care [facility] [address] [address] Jorge Bray MD [address] [place] [address] medical records Social History Tobacco Use Types Packs/Day Years [...] often do you attend chur ch or yazidism services? Never 10/27/2024 Do you belong to any clubs o r organizations such as episcopal groups, unions, fraternal or athletic groups, or [...] any time in the past 12 m [facility], were you homeless or living in a correction (including now)? No 10/27/2024 CHI Intimate Partner [...] Date Omar rded Speak language other than Samoan at home Not on file 06/03/2023 Want [...] encounter Miscellaneous Notes * Telephone Encounter - Aicha Bullock CMA - 02/24/2025 4:33 PM EDT Spoke with patient, he did receive his copies as requested. * Telephone Encounter - Aicha Bullock CMA - 01/20/2025 4:22 PM EDT Patient came in today to check the status of his medical records release. He states he requested his records a few months ago and still has not heard or received anything. We did tell him they were kept off sight and that we use [facility] for this. He is asking if there is a phone number he can callto check status or what he can do to get an idea of how long this will take. Can you please see howwe can help. Thanks documented in this encounter Plan of Treatment Not on file documented as of this encounter Visit Diagnoses Not on filedocumented in this encounter Care Teams Gi Technician Relationship Specialty Start Date End Date Jorge Bray MD [address] [place] [address] PCP - General Family Medicine 06/04/23 01/31/25 Tino Godwin Jr., MD [address] [facility] [address] [place] [address] Urology 10/27/24 Harrison Santana [address] [facility] [address] [place] [address] 10/27/24 documented as of this encounter
== END 2025-04-20 23:59 | disposition home or self-care (01) ==
LOC: RAD 15:24
PROVIDERS: PCP Family Medicine; Visit Provider Podiatrist
DX: S92.351A Displaced fracture of fifth metatarsal bone, right foot, initial encounter for closed fracture (principal)
CPT/HCPCS: 73630